=== PATIENT | female | born 1995 | race Two or more races ===

== ENCOUNTER 2021-01-08 22:20 | Emergency (ER) | payer MEDICAID ==
[~2021-01-08] VITALS: Ht 160 cm; Wt 97.5 kg
[2021-01-09] MEDS ORDERED: IBUPROFEN 800 MG TAB PO ONE (03:00)
[2021-01-09] MEDS ORDERED: HYDROcodone-ACET 10/325MG TAB PO ONE (04:45)
[2021-01-09] MEDS ORDERED: ONDANSETRON ODT 4 MG TAB PO ONE (04:45)
[2021-01-09 04:49] VITALS: BP 114/90
== END 2021-01-09 05:08 | disposition home or self-care (01) ==
LOC: EDBD 22:20 → ER 22:20
DX: S61.452A Open bite of left hand, initial encounter (principal); S61.451A Open bite of right hand, initial encounter; E11.9 Type 2 diabetes mellitus without complications; Z88.0 Allergy status to penicillin; W54.0XXA Bitten by dog, initial encounter; Y93.89 Activity, other specified; Y92.89 Other specified places as the place of occurrence of the external cause; Y99.8 Other external cause status
CPT/HCPCS: 73110; 99284; Q0162